=== PATIENT | female | born 1945 | race Caucasian/White ===

== ENCOUNTER → 2016-08-30 | Outpatient (CLI) | payer OTHER, MEDICAID ==
--- NOTE | 2016-08-30 18:21 | DX ---
Thoracolumbar Spine - Two Views Indication: Surgery three months ago. Technique: Upright AP and lateral views. Comparison: June 02, 2016. Findings: The posterior fusion construct extending from L4 to S1, consisting of dual posterior rods, bilateral transpedicular screws, interspinous fixator devices at L4-L5 and L5-S1, and allograft and radiopaque markers in the L4-L5 and L5-S1 interbody spaces are all unchanged. 12 mm of anterolisthes is of L4 on L5 is unchanged. No perihardware fracture or lucency. Bones are demineralized. No acut e compression fracture. The abdominal aorta has calcified plaque. A subacute posterior 11th rib fra cture has healing callus. IMPRESSION: Well-seated posterior fusion construct extending from L4 to S1. Progressive fusion of t he L4 through S1 vertebral bodies.
== END ==
LOC: FIMAGING 15:46
PROVIDERS: ATTEND Physician Assistant Surgical
DX: Z09 Encounter for follow-up examination after completed treatment for conditions other than malignant neoplasm (principal); Z98.1 Arthrodesis status

== ENCOUNTER 2016-10-03 13:07 | Observation (INO) | payer OTHER, MEDICAID ==
--- NOTE | 2016-10-03 13:58 | EDPHY ---
H & P Stated Complaint: cough/fever/hurts to breathe - Personal History Current Tetanus/Diphtheria Vaccine: Yes Tetanus Vaccine Date: 2012 - Medical/Surgical History Hx Asthma: Yes Hx Chronic Respiratory Disease: No Hx Diabetes: No Hx Cardiac Disease: No Hx Renal Disease: No Hx Cirrhosis: No Hx Alcoholism: No Hx HIV/AIDS: No Hx Splenectomy or Spleen Trauma: No Other PMH: HTN, chronic L arm and R ankle sx/pain, dermoid cyst, L oophrectomy, cholecystectomy,. pneumonia last 2004, - Social History Smoking Status: Never smoked Time Seen by Provider: 10/03/16 13:57 Constitutional: Initial Vital Signs Temperature (C) 36.7 C 10/03/16 13:13 Heart Rate 91 10/03/16 13:13 Respiratory Rate 26 H 10/03/16 13:13 Blood Pressure 101/77 10/03/16 13:13 O2 Sat (%) 92 10/03/16 13:13 O2 Delivery Mode Nasal Cannula O2 (L/minute) 3 Allergies/Adverse Reactions: No Known Allergies Allergy (Verified 10/03/16 13:11) Home Medications: Medication Instructions Recorded Gabapentin [Neurontin 300 MG (*)] 600 mg PO HS 05/16/16 Hydrochlorothiazide [HCTZ (*)] 25 mg PO DAILY 05/16/16 Temazepam [Restoril 15 MG (*)] 15 mg PO HSPRN PRN 05/16/16 Symbicort 160-4.5 Mcg Inh (*) 10/03/16 Medical Decision Making ED Course/Re-evaluation: CHIEF COMPLAINT: Cough, fever HISTORY OF PRESENT ILLNESS: The patient is a 71 y/o female complaining of a cough, shortness of breath, and fever for the last 6 days. She has a history of asthma and prior admission for pneumonia. She reports her symptoms feel exactly the same as a previous pneumonia episode. She notes she required home O2 for a while following a back surgery in May 2016, but is no longer on home O2. REVIEW OF SYSTEMS: A 10 point review of systems was performed and is negative with the exception of the elements mentioned in the history of present illness. PHYSICAL EXAM: HR, BP, O2 Sat, RR. Temp noted General Appearance: Alert, well hydrated, appropriate, and non-toxic appearing. Head: Atraumatic without scalp tenderness or obvious injury Eyes: Pupils equal, round, reactive to light and accommodation, EOMI, no trauma , no injection. Ears: Clear bilaterally, no perforation, normal landmarks Nose: Atraumatic, no rhinorrhea, clear. Throat: There is no erythema or exudates, no lesions, normal tonsils, mucus membranes moist. Neck: Supple, 2+ carotid upstroke, nontender, no lymphadenopathy. Respiratory: No retractions, no distress, no wheezes, and no accessory muscle use. Lungs have coarse rhonchi throughout all shaikh with decreases at the bases. Cardiovascular: Regular rate and rhythm, no murmurs, rubs, or gallops. Good capillary refill all extremities. Gastrointestinal: Abdomen is soft, nontender, non-distended, no masses, no rebound, no guarding, no peritoneal signs. Musculoskeletal: Normal active ROM of all extremities, atraumatic. Neurological: Alert, appropriate, and interactive. The patient has normal DTRs and non-focal cranial nerves, motor, sensory, and cerebellar exam. Skin: No rashes, good turgor, no nodules on palpation. Past medical history: Previous admission for pneumonia, asthma Past surgical history: Back surgery 05/31/16 Family history: Noncontributory Social history: Lives in [place] DIAGNOSTICS/PROCEDURES/CRITICAL CARE TIME: Study: Chest x-ray Indication: Cough Results: Chest x-ray was obtained. The results of the study are Mild diffuse interstitial thickening throughout both lungs, without focal pneumonia. Central bronchitis. The study was read by the radiologist, Dr. Solo. I viewed the images myself on the PACS system. DIFFERENTIAL DIAGNOSIS: The differential diagnosis for the patient's cough and fever included but was not limited to pneumonia, bronchitis, asthma exacerbation, urinary tract infection, viral syndrome, meningitis, and sepsis. MEDICAL DECISION MAKING: This is a 71 y/o female with a history of asthma presenting with a 6-day history of a cough and fever. She has not improved with OTC treatments. She has coarse rhonchi in all shaikh on exam with decreases at the bases and is actively cough. Exam is otherwise unremarkable. Her HR is 84 on exam and respiratory rate 18. Plan for sepsis screen, flu swab, chest x-ray, and only Atrovent nebulizer treatment administered as patient declines albuterol because it made her "hyper." Chest x-ray is consistent with bronchitis. Labs are pending. 1500: Patient signed out to Dr. Putnam at shift change pending lab results. If normal, patient will be discharged home with diagnosis of acute bronchitis, referral to PCP, and inhaler if she will take it, though it's likely she will refuse albuterol treatment again. (Stalin Stahl) 71-year-old female with a history of asthma who presents with influenza B and bronchospasm. Chest-few expiratory wheezes after an Atrovent nebulizer. I will give her Solu-Medrol 125 mg IV and a L of normal saline and will check her oxygen saturation on room air. Chest x-ray reviewed by Dr. Solo, radiology, reveals: Mild diffuse interstitial thickening throughout both lungs, without focal pneumonia. Central bronchitis. This is new from December 2014. Oxygen saturation 79% on room air. Oxygen 2 L by nasal cannula was placed and her oxygen level return to the mid 90s. I will admit her for influenza and bronchospasm. There is no evidence of pneumonia on x-ray. 1558: Consulted with Dr. Anderson, hospitalist. She accepts admission. . (Pau Putnam) - Data Points Laboratory Results: Laboratory Results 10/03/16 14:45 10/03/16 10/03/16 10/03/16 15:00 15:00 14:45 WBC RBC Hgb Hct MCV MCH MCHC RDW Plt Count MPV Neut % (Auto) Lymph % (Auto) [place] % (Auto) Eos % (Auto) Baso % (Auto) Nucleat RBC Rel Count Absolute Neuts (auto) Absolute Lymphs (auto) Absolute Monos (auto) Absolute Eos (auto) Absolute Basos (auto) Absolute Nucleated RBC Immature Gran % Immature Gran # PT INR APTT VBG Lactic Acid 1.2 mmol/L mmol/L (0.7-2.1) Sodium Pending Potassium Pending Chloride Pending Carbon Dioxide Pending Anion Gap Pending BUN Pending Creatinine Pending Estimated GFR Pending Glucose Pending Calcium Pending Total Bilirubin Pending Influenza Typ A,B (DFA) POSITIVE FOR FLU B H (NEGATIVE) 10/03/16 10/03/16 14:45 14:45 WBC 6.68 10^3/uL 10^3/uL (3.80-9.50) RBC 4.61 10^6/uL 10^6/uL (4.18-5.33) Hgb 14.3 g/dL g/dL (12.6-16.3) Hct 41.2 % % (38.0-47.0) MCV 89.4 fL fL (81.5-99.8) MCH 31.0 pg pg (27.9-34.1) MCHC 34.7 g/dL g/dL (32.4-36.7) RDW 15.9 % H % (11.5-15.2) Plt Count 95 10^3/uL L 10^3/uL (150-400) MPV 11.0 fL fL (8.7-11.7) Neut % (Auto) 64.1 % % (39.3-74.2) Lymph % (Auto) 22.3 % % (15.0-45.0) [place] % (Auto) 12.3 % % (4.5-13.0) Eos % (Auto) 0.6 % % (0.6-7.6) Baso % (Auto) 0.4 % % (0.3-1.7) Nucleat RBC Rel Count 0.0 % % (0.0-0.2) Absolute Neuts (auto) 4.28 10^3/uL 10^3/uL (1.70-6.50) Absolute Lymphs (auto) 1.49 10^3/uL 10^3/uL (1.00-3.00) Absolute Monos (auto) 0.82 10^3/uL H 10^3/uL (0.30-0.80) Absolute Eos (auto) 0.04 10^3/uL 10^3/uL (0.03-0.40) Absolute Basos (auto) 0.03 10^3/uL 10^3/uL (0.02-0.10) Absolute Nucleated RBC 0.00 10^3/uL 10^3/uL (0-0.01) Immature Gran % 0.3 % % (0.0-1.1) Immature Gran # 0.02 10^3/uL 10^3/uL (0.00-0.10) PT 13.3 SEC SEC (12.0-15.0) INR 1.02 (0.83-1.16) APTT 32.6 SEC SEC (23.0-38.0) VBG Lactic Acid Sodium Potassium Chloride Carbon Dioxide Anion Gap BUN Creatinine Estimated GFR Glucose Calcium Total Bilirubin Influenza Typ A,B (DFA) Medications Given: Discontinued Medications Sodium Chloride (Ns) 1,000 mls @ 0 mls/hr IV ONCE ONE PRN Reason: Wide Open Stop: 10/03/16 15:51 Last Admin: 10/03/16 15:57 Dose: 1,000 mls Ipratropium [place] (Atrovent Neb) 0.5 mg IH EDNOW ONE Stop: 10/03/16 14:09 Last Admin: 10/03/16 14:45 Dose: 0.5 mg Departure - Departure Disposition: Home, Routine, Self-Care Clinical Impression: Influenza Acute bronchitis Qualifiers: Bronchitis organism: other organism Qualified Code(s): J20.8 - Acute bronchitis due to other specified organisms Condition: Good Instructions: Influenza (ED), Acute Bronchitis (ED) Additional Instructions: You have influenza. You are contagious, so be careful around other people. Follow up with your primary care provider for symptoms not improved over the next week. Return for worsening symptoms, including with worsening cough, vomiting or fever. Referrals: Antonella Martins MD [Primary Care Provider] - As per Instructions Report Scribed for: Stalin Stahl Report Scribed by: Shelia Montes Date of Report: 10/03/16 Time of Report: 14:16
[2016-10-03] MEDS ORDERED: IPRATROPIUM BROMIDE 0.5 MG/2.5 ML DEYVIAL IH ONE (14:08)
--- NOTE | 2016-10-03 15:09 | CPEKG ---
Heart Rate: 78 RR Interval: 769 P-R Interval: 172 QRSD Interval: 100 QT Interval: 412 QTC Interval: 470 P [place]: 45 QRS [place]: -9 T Wave [place]: 26 EKG Severity - NORMAL ECG - EKG Impression: SINUS RHYTHM Electronically Signed By: Stalin Stahl 03-Oct-2016 15:18:59
[2016-10-03 15:19] LABS: % IMMATURE GRANULYOCYTES 0.3 % (0.0-1.1); ABSOLUTE IMMATURE GRANULOCYTES 0.02 10^3/uL (0.00-0.10); ADD DIFF? NO; ADD MORPH? NO; ADD SCAN? NO; ATYPICAL LYMPHOCYTE FLAG 0 (0-99); FRAGMENT RBC FLAG 0 (0-99); HEMATOCRIT 41.2 % (38.0-47.0); HEMOGLOBIN 14.3 g/dL (12.6-16.3); LEFT SHIFT FLG 0 (0-99); LIPEMIA HEMOLYSIS FLAG 90 (0-99); MEAN CELL HEMOGLOBIN CONCENTR. 34.7 g/dL (32.4-36.7); MEAN CELL VOLUME 89.4 fL (81.5-99.8); PLATELET CLUMPS FLAG 0 (0-99); PLATELET COUNT 95 10^3/uL (150-400); RED BLOOD CELL COUNT 4.61 10^6/uL (4.18-5.33); RED CELL DISTRIBUTION WIDTH 15.9 % (11.5-15.2)
[2016-10-03 15:28] LABS: INR 1.02 (0.83-1.16); PROTIME(PATIENT) 13.3 SEC (12.0-15.0)
[2016-10-03 15:29] LABS: APTT 32.6 SEC (23.0-38.0)
[2016-10-03] MEDS ORDERED: NS 1,000 ML IV ONE (15:50)
[2016-10-03 16:01] LABS: ANION GAP 10 mEq/L (8-16); BILIRUBIN,TOTAL 0.7 mg/dL (0.1-1.4); CALCIUM 8.8 mg/dL (8.5-10.4); CARBON DIOXIDE 23 mEq/l (22-31); CHLORIDE 100 mEq/L (97-110); CREATININE 0.7 mg/dL (0.6-1.0); GLOMERULAR FILTRATION RATE > 60; GLUCOSE 85 mg/dL (70-100); POTASSIUM 3.7 mEq/L (3.5-5.2); SODIUM 133 mEq/L (134-144)
[2016-10-03] MEDS ORDERED: methylPREDNISolone SOD SUCC 125 MG/2 ML VIAL IVP ONE (16:05)
[2016-10-03] MEDS ORDERED: OSELTAMIVIR PHOSPHATE 75 MG CAP PO ONE (16:06)
[2016-10-03] MEDS ORDERED: ONDANSETRON DISINTEGRATING 4 MG TAB PO PRN (16:29)
[2016-10-03] MEDS ORDERED: ONDANSETRON 4 MG/2 ML VIAL IVP PRN (16:29)
[2016-10-03] MEDS ORDERED: IPRATROPIUM/ALBUTEROL 3 ML DEYVIAL IH PRN (16:32)
[2016-10-03] MEDS ORDERED: BENZONATATE 100 MG CAP PO PRN (17:12)
[2016-10-03] MEDS ORDERED: NS 1,000 ML IV SCH (17:15)
--- NOTE | 2016-10-03 18:10 | GHP ---
DATE OF ADMISSION: 10/03/2016 CHIEF COMPLAINT: Acute hypoxia, influenza B. HISTORY OF PRESENT ILLNESS: a 71-year-old female with history of hypertension, asthma, thrombocytopenia, presenting with diffuse upper respiratory symptoms. Patient is complaining of a runny nose and dry cough 2-3 days ago with worsening of cough on Monday. She developed a fever at that time of 101. The cough is dry. No sputum production. Has been drinking fluids, but minimal p.o. intake, with decreased appetite. Reports headache, diarrhea 3 times yesterday, shortness of breath and myalgias. She did not get a flu shot this year because a couple years ago she got it and still got the flu. Denies ill contacts. In the emergency room, she was 95% on room air. Initially, she was wanting to go home. However, we walked her, and she dropped to 85% on room air, and she opted to stay overnight. REVIEW OF SYSTEMS: I completed a 10-point review of systems, negative, except as noted in HPI. PAST MEDICAL HISTORY: 1. Hypertension. 2. Pneumonia in the past x3. 3. Asthma. 4. Thrombocytopenia, unclear etiology per my review of past records. PAST SURGICAL HISTORY: Back surgery, May 2016. SOCIAL HISTORY: Lives in [place]. Remote history of tobacco for 8 years. No alcohol. No illicits. FAMILY HISTORY: Mother with OK and breast cancer, just this weekend of a stroke. Father with a heart attack. ALLERGIES: No known drug allergies. MEDICATIONS: Symbicort, Restoril, hydrochlorothiazide 25 mg daily, and gabapentin 600 q.h.s. PHYSICAL EXAM: VITAL SIGNS: Temperature 36.7, blood pressure 134/86, heart rate 70s to 90s, respiration rate 20s, 79% on room air, 96% on 2 L. GENERAL: Ill appearing, uncomfortable. HEENT: PERRLA. Dry mucous membranes. CV: Regular rate and rhythm. No murmurs, gallops, or rubs. LUNGS: Crackles, bilateral bases. ABDOMEN: Soft, nontender, nondistended. Positive bowel sounds. : No Nicole. No suprapubic tenderness. MUSCULOSKELETAL: 5/5 upper and lower extremity strength. NEURO: 2 through 12 intact. PSYCH: Alert and oriented x3. LABS: WBC 6.8, hemoglobin 14, hematocrit 41, platelets 95 (baseline is in the 90s). Sodium 133, potassium 3.7, chloride 100, carbon dioxide 23, BUN 9. Creatinine is 0.7. Glucose 85, total bilirubin 0.7. INR is 1.02. PT is 13.3. Positive for influenza B. EKG personally reviewed by me, normal sinus rhythm. Chest x-ray personally reviewed by me: Bilateral bronchial thickening. No opacity or effusion. ASSESSMENT AND PLAN: 1. Acute hypoxic respiratory failure: due influenza B, asthma exacerbation. No evidence of pneumonia or fluid overload. Treat with Tamiflu given recent fevers and underlying asthma. Continue DuoNebs. 2. Influenza B: Tamiflu for 5 days, DuoNeb, and antitussives. 3. Asthma exacerbation: triggered by flu. Dosed Solu-Medrol in ER, cont prednisone in the morning and DuoNebs. 4. Benign hypertension: Will hold antihypertensive given decreased p.o. intake. 5. Thrombocytopenia: Platelets today are 95, which is her baseline. Unclear etiology per my review of records. 6. Chronic back pain: Underwent surgery, May 2016, without issue. Will continue gabapentin, Tylenol, and heating pad as needed. 7. Diet: Regular. 8. Deep vein thrombosis prophylaxis: SCDs. 9. Disposition: The patient warrants observation admission given acute hypoxia , warranting oxygen, Tamiflu. Suspect the patient will want to discharge home tomorrow. /[id number]/MODL MTDD
[2016-10-03] MEDS: OSELTAMIVIR PHOSPHATE 75 MG CAP PO SCH (18:17)
[2016-10-03] MEDS: guaiFENesin/CODEINE PHOS 10 ML UDCUP PO PRN (18:21)
[2016-10-03] MEDS: ACETAMINOPHEN 325 MG TAB PO PRN (18:21)
[2016-10-03] MEDS ORDERED: traMADol 50 MG TAB PO PRN (20:39)
[2016-10-03] MEDS ORDERED: GABAPENTIN 300 MG CAP PO PRN (20:39)
[2016-10-03] MEDS ORDERED: TEMAZEPAM 15 MG CAP PO PRN (20:39)
[2016-10-03] MEDS ORDERED: GABAPENTIN 300 MG CAP PO SCH (21:00)
[2016-10-03] MEDS: BUDESONIDE/FORMOTEROL 160/4.5 60 PUFFS/MDI IH SCH (21:09)
[2016-10-03] MEDS ORDERED: TEMAZEPAM 15 MG CAP PO ONE (23:07)
[2016-10-04] MEDS: guaiFENesin/CODEINE PHOS 10 ML UDCUP PO PRN ×2 (01:52→09:14)
[2016-10-04] MEDS: ACETAMINOPHEN 325 MG TAB PO PRN ×2 (03:12→12:25)
[2016-10-04 06:16] LABS: HEMATOCRIT 42.4 % (38.0-47.0); HEMOGLOBIN 13.9 g/dL (12.6-16.3); MEAN CELL HEMOGLOBIN CONCENTR. 32.8 g/dL (32.4-36.7); MEAN CELL VOLUME 88.5 fL (81.5-99.8); RED BLOOD CELL COUNT 4.79 10^6/uL (4.18-5.33); RED CELL DISTRIBUTION WIDTH 15.6 % (11.5-15.2)
[2016-10-04 06:42] LABS: ANION GAP 10 mEq/L (8-16); CALCIUM 8.9 mg/dL (8.5-10.4); CARBON DIOXIDE 25 mEq/l (22-31); CHLORIDE 106 mEq/L (97-110); CREATININE 0.7 mg/dL (0.6-1.0); GLOMERULAR FILTRATION RATE > 60; GLUCOSE 151 mg/dL (70-100); POTASSIUM 3.8 mEq/L (3.5-5.2); SODIUM 141 mEq/L (134-144)
[2016-10-04 08:28] VITALS: RESP 20
[2016-10-04] MEDS: OSELTAMIVIR PHOSPHATE 75 MG CAP PO SCH (08:42)
[2016-10-04] MEDS ORDERED: PRENATAL VIT 1 EACH TAB PO SCH (09:00)
[2016-10-04] MEDS ORDERED: predniSONE 20 MG TAB PO SCH (09:00)
[2016-10-04] MEDS ORDERED: CHOLECALCIFEROL VIT D3 1,000 UNITS TAB PO SCH (09:00)
[2016-10-04] MEDS ORDERED: Herbals/Supplements -Info Only PO SCH (09:00)
[2016-10-04] MEDS ORDERED: PARoxetine HCL 10 MG TAB PO SCH (09:00)
[2016-10-04] MEDS ORDERED: CALCIUM CARB W/VIT D 500 MG TAB PO SCH ×2 (09:00→11:00)
[2016-10-04] MEDS ORDERED: HYDROCHLOROTHIAZIDE 25 MG TAB PO SCH (09:00)
[2016-10-04] MEDS ORDERED: ENOXAPARIN 40 MG/0.4 ML SYR SC SCH (09:00)
[2016-10-04] MEDS: BUDESONIDE/FORMOTEROL 160/4.5 60 PUFFS/MDI IH SCH (10:04)
[2016-10-04] MEDS ORDERED: LOPERAMIDE HCL 1 MG/5 ML UDCUP PO PRN (11:17)
--- NOTE | 2016-10-04 11:19 | PDDCSUM ---
Discharge Summary Discharge Summary: DISCHARGE DIAGNOSES: ACUTE INFLUENZA ACUTE HYPOXEMIC RESPIRATORY FAILURE COPD EXACERBATION HOSPITAL COURSE: This patient presented with myalgia, nausea/vomiting, cough, dyspnea and fever, and was found to have acute inflluenza B with hypoxemia but no evidence of a bacterial pneumonia. She was treated in the hospital with tamiflu, bronchodilators and prednisone. She improved rapidly with resolution of fever , myalgia, anorexia, nausea and much improved respiratory symptoms. By today she is ambulating well in [facility] on room air. She is stable for DC to home She is to follow up iwth her display card writer in 1 week. She is aware that her condition is contagious. MEDICATION CHANGES: -5 days of tamiflu bid -atrovent inhaler -prednisone 20 mg / day for 5 more days
[2016-10-04 11:35] VITALS: TEMP 97.8
[2016-10-04] MEDS: GABAPENTIN 250 MG/5 ML 30 ML BOTTLE PO PRN ×2 (12:26→12:27)
[2016-10-04 16:04] VITALS: BP 133/88; PULSE 99; O2SAT 91
== END 2016-10-04 16:37 | disposition home or self-care (01) ==
LOC: INTOOBSV 16:05 → F3E 17:05
PROVIDERS: ADMIT Internal Medicine; ATTEND Internal Medicine
DX: J10.1 Influenza due to other identified influenza virus with other respiratory manifestations (principal); J96.01 Acute respiratory failure with hypoxia; J45.901 Unspecified asthma with (acute) exacerbation; I10 Essential (primary) hypertension; D69.6 Thrombocytopenia, unspecified; Z87.891 Personal history of nicotine dependence
CPT/HCPCS: 71020; 93005; G0378; J1650; 96374

== ENCOUNTER → 2016-11-23 | Outpatient (CLI) | payer OTHER, MEDICAID | LOC: FIMAGING 11:08 | PROVIDERS: ATTEND Physician Assistant Surgical | DX: Z09 Encounter for follow-up examination after completed treatment for conditions other than malignant neoplasm (principal); Z98.1 Arthrodesis status ==

== ENCOUNTER 2016-12-15 14:01 | Emergency (ER) | payer OTHER, MEDICAID ==
[2016-12-15 14:07] VITALS: O2SAT 94
--- NOTE | 2016-12-15 14:28 | EDPHY ---
H & P Time Seen by Provider: 12/15/16 14:22 HPI/ROS: CHIEF COMPLAINT: Fever, body aches HISTORY OF PRESENT ILLNESS: This patient is a 71 year old female who presents to the Emergency Department complaining of lower extremity myalgias and generalized weakness first presenting in mid-November and increasing in severity over time. Approximately one month prior to arrival, she began to experience waxing and waning generalized weakness with associated body aches to both lower extremities. Ten days prior to arrival, she experienced an intermittent fever with chills effectively alleviated with use of Tylenol. Her fever returned when she stopped using Tylenol yesterday. She presents to the ED today because her complaints of fatigue and weakness have not improved and her PCP is unable to see her in the office. She describes mild exertional dyspnea but attributes this to her asthma. She denies cough, diarrhea, constipation, nausea, or vomiting. Denies hematuria or dysuria. She had the flu earlier this year. No additional pertinent medical history. REVIEW OF SYSTEMS: Constitutional: +fever, +chills, +generalized weakness Eyes: No visual changes ENT: No sore throat Respiratory: No cough, +shortness of breath Cardiac: No chest pain Gastrointestinal: No nausea, no vomiting, no abdominal pain Genitourinary: No hematuria, no dysuria Musculoskeletal: +left-sided low back pain, +bilateral lower extremity myalgia, no leg swelling Skin: No rash Neurological: +mild headache, no numbness, no weakness Psychiatric: No depression Past Medical/Surgical History: Asthma, shoulder surgery unspecified, hernia, left-sided oophorectomy, appendectomy Social History: , lives in [place], never smoked Smoking Status: Never smoked Physical Exam: General Appearance: Alert, no distress Eyes: Pupils equal and round, no conjunctival pallor or injection ENT, Mouth: Mucous membranes moist Neck: Normal inspection Respiratory: Lungs are clear to auscultation Cardiovascular: Regular rate and rhythm Gastrointestinal: Abdomen is soft with mild RLQ and LLQ tenderness to palpation Neurological: A&O, nonfocal, normal gait Skin: Warm and dry, erythematous rash on right lower extremity with irregular borders with central clearing and scalings, largest area is 5x7cm in diameter Extremities: Nontender, no pedal edema Psychiatric: Mood and affect normal Constitutional: Initial Vital Signs Temperature (C) 37.1 C 12/15/16 14:03 Heart Rate 106 H 05/11/17 14:03 Respiratory Rate 18 12/15/16 14:03 Blood Pressure 136/87 H 12/15/16 14:03 O2 Sat (%) 94 12/15/16 14:03 O2 Delivery Mode Room Air Allergies/Adverse Reactions: No Known Allergies Allergy (Verified 10/03/16 13:11) Home Medications: Medication Instructions Recorded Calcium Carbonate/Vitamin D3 2 each PO DAILY 10/03/16 [Calcium 500-Vit D3 200 Tablet] Cholecalciferol Vit D3 [Vitamin D3 2,000 units PO DAILY 10/03/16 (*)] Gabapentin 150 mg PO Q6 PRN 10/03/16 Gabapentin [Neurontin 300 MG (*)] 300 mg PO HS PRN 10/03/16 Herbals/Supplements -Info Only 1 ea PO DAILY 10/03/16 Hydrochlorothiazide [HCTZ (*)] 25 mg PO DAILY 10/03/16 PARoxetine HCL [Paxil 10mg (*)] 10 mg PO DAILY 10/03/16 Vit27&Calcium/Iron/FA 1 each PO DAILY 10/03/16 [] Temazepam 15 - 30 mg PO HS PRN 10/03/16 Acetaminophen [Tylenol 325mg (*)] 650 mg PO Q4HRS PRN #0 tab 10/04/16 Benzonatate [Tessalon Pearles] 200 mg PO TID PRN #30 cap 10/04/16 Medical Decision Making - Diagnostics Imaging Results: Imaging Impressions Abdomen CT 12/15/16 14:35 Impression: 1. No localized acute intra-abdominal process. 2. Constipation and minimal sigmoid diverticulosis are unchanged. 3. Normal appendix. 4. Anterior abdominal wall hernias containing only fat are unchanged. 5. Minimally worse bibasilar bronchiolitis. Findings discussed with Emergency Department physician, Pau Putnam on 2016 at 1603 hours. Chest X-Ray 12/15/16 14:35 Impression: Stable chest. Diffuse bilateral pulmonary interstitial thickening, unchanged.. ED Course/Re-evaluation: This 71-year-old female presents complaining of persistent generalized weakness , fatigue, and lower extremity myalgias beginning one month prior to arrival with an intermittent fever beginning 1.5 weeks prior to arrival. She describes a variety of nonspecific complaints as summarized in ROS. She is alert and well- appearing on presentation. She has RLQ and LLQ abdominal tenderness to palpation and a rash to her right lower extremity. Will proceed with CT of the abdomen and labs. Chest x-ray reviewed by me shows bilateral pulmonary thickening unchanged from previous. Labs reviewed and are unremarkable. UA is negative for UTI. Awaiting CT results at this time. 1600: CT of the abdomen is non-acute per Dr. Torres, radiology. I discussed imaging and lab results with the patient. Unclear etiology of fever and fatigue. No fever in ED and she is well-appearing. I recommended to her that she follow-up with a PCP for further evaluation. She expresses agreement to this and will be discharged home in good condition. Differential Diagnosis: Differential diagnosis includes diverticulitis, appendicitis, pyelonephritis, cholecystitis, influenza, cellulitis, pneumonia, abscess, meningitis, anemia. - Data Points Laboratory Results: Laboratory Results 12/15/16 14:45 12/15/16 14:45 12/15/16 12/15/16 12/15/16 14:45 14:45 14:30 WBC 9.75 10^3/uL H 10^3/uL (3.80-9.50) RBC 4.50 10^6/uL 10^6/uL (4.18-5.33) Hgb 14.2 g/dL g/dL (12.6-16.3) Hct 41.9 % % (38.0-47.0) MCV 93.1 fL fL (81.5-99.8) MCH 31.6 pg pg (27.9-34.1) MCHC 33.9 g/dL g/dL (32.4-36.7) RDW 13.0 % % (11.5-15.2) Plt Count 152 10^3/uL 10^3/uL (150-400) MPV 10.2 fL fL (8.7-11.7) Neut % (Auto) 58.4 % % (39.3-74.2) Lymph % (Auto) 24.0 % % (15.0-45.0) [place] % (Auto) 11.3 % % (4.5-13.0) Eos % (Auto) 5.2 % % (0.6-7.6) Baso % (Auto) 0.7 % % (0.3-1.7) Nucleat RBC Rel Count 0.0 % % (0.0-0.2) Absolute Neuts (auto) 5.69 10^3/uL 10^3/uL (1.70-6.50) Absolute Lymphs (auto) 2.34 10^3/uL 10^3/uL (1.00-3.00) Absolute Monos (auto) 1.10 10^3/uL H 10^3/uL (0.30-0.80) Absolute Eos (auto) 0.51 10^3/uL H 10^3/uL (0.03-0.40) Absolute Basos (auto) 0.07 10^3/uL 10^3/uL (0.02-0.10) Absolute Nucleated RBC 0.00 10^3/uL 10^3/uL (0-0.01) Immature Gran % 0.4 % % (0.0-1.1) Immature Gran # 0.04 10^3/uL 10^3/uL (0.00-0.10) Sodium 140 mEq/L mEq/L (134-144) Potassium 3.6 mEq/L mEq/L (3.5-5.2) Chloride 103 mEq/L mEq/L (97-110) Carbon Dioxide 26 mEq/l mEq/l (22-31) Anion Gap 11 mEq/L mEq/L (8-16) BUN 13 mg/dL mg/dL (7-23) Creatinine 0.6 mg/dL mg/dL (0.6-1.0) Estimated GFR > 60 Glucose 91 mg/dL mg/dL (70-100) Calcium 9.1 mg/dL mg/dL (8.5-10.4) Total Bilirubin 0.7 mg/dL mg/dL (0.1-1.4) Conjugated Bilirubin 0.5 mg/dL mg/dL (0.0-0.5) Unconjugated Bilirubin 0.2 mg/dL mg/dL (0.0-1.1) AST 29 IU/L IU/L (14-46) ALT 28 IU/L IU/L (9-52) Alkaline Phosphatase 116 IU/L IU/L (38-126) Total Protein 6.8 g/dL g/dL (6.3-8.2) Albumin 3.9 g/dL g/dL (3.5-5.0) Lipase 81.0 IU/L IU/L (23-300) Urine Color YELLOW Urine Appearance CLEAR Urine pH 7.0 (5.0-7.5) Ur Specific [place] 1.009 (1.002-1.030) Urine Protein NEGATIVE (NEGATIVE) Urine Ketones NEGATIVE (NEGATIVE) Urine Blood NEGATIVE (NEGATIVE) Urine Nitrate NEGATIVE (NEGATIVE) Urine Bilirubin NEGATIVE (NEGATIVE) Urine Urobilinogen NEGATIVE EU EU (0.2-1.0) Ur Leukocyte Esterase NEGATIVE (NEGATIVE) Urine Glucose NEGATIVE (NEGATIVE) Medications Given: Discontinued Medications Acetaminophen (Tylenol) 1,000 mg PO EDNOW ONE Stop: 12/15/16 15:36 Last Admin: 12/15/16 15:37 Dose: 1,000 mg Sodium Chloride (Ns) 1,000 mls @ 0 mls/hr IV ONCE ONE PRN Reason: Wide Open Stop: 12/15/16 14:35 Last Admin: 12/15/16 15:02 Dose: Not Given Departure - Departure Disposition: Home, Routine, Self-Care Clinical Impression: Fever Qualifiers: Fever type: unspecified Qualified Code(s): R50.9 - Fever, unspecified Fatigue Qualifiers: Fatigue type: other Qualified Code(s): R53.83 - Other fatigue Condition: Good Instructions: Fever in Adults (ED) Additional Instructions: 1. Continue to take up 650mg Tylenol every 4-6 hours as needed for fever. 2. I recommend that you follow-up with your primary care provider on Monday for further evaluation of your weakness and fever 3. Return to the Emergency Department if you experience uncontrollable high fever, chest pain, shortness of breath, or other serious concerns. Referrals: Antonella Martins MD [Primary Care Provider] - As per Instructions Report Scribed for: Pau Putnam Report Scribed by: Tammi Love Date of Report: 12/15/16 Time of Report: 14:24 Physician Review and Approval Statement: 12/15/16 14:24 Portions of this note were transcribed by a medical biller/coder. I personally performed a history, physical exam, medical decision making, and confirmed accuracy of information the transcribed note.
[2016-12-15] MEDS ORDERED: NS 1,000 ML IV ONE (14:34)
[2016-12-15 15:02] LABS: % IMMATURE GRANULYOCYTES 0.4 % (0.0-1.1); ABSOLUTE IMMATURE GRANULOCYTES 0.04 10^3/uL (0.00-0.10); ADD DIFF? NO; ADD MORPH? NO; ADD SCAN? NO; ATYPICAL LYMPHOCYTE FLAG 0 (0-99); FRAGMENT RBC FLAG 0 (0-99); HEMATOCRIT 41.9 % (38.0-47.0); HEMOGLOBIN 14.2 g/dL (12.6-16.3); LEFT SHIFT FLG 0 (0-99); LIPEMIA HEMOLYSIS FLAG 90 (0-99); MEAN CELL HEMOGLOBIN 31.6 pg (27.9-34.1); MEAN CELL HEMOGLOBIN CONCENTR. 33.9 g/dL (32.4-36.7); MEAN CELL VOLUME 93.1 fL (81.5-99.8); MEAN PLATELET VOLUME 10.2 fL (8.7-11.7); PLATELET CLUMPS FLAG 0 (0-99); PLATELET COUNT 152 10^3/uL (150-400)
[2016-12-15 15:15] LABS: ALANINE AMINOTRANSFERASE 28 IU/L (9-52); ALBUMIN 3.9 g/dL (3.5-5.0); ALKALINE PHOSPHATASE 116 IU/L (38-126); ANION GAP 11 mEq/L (8-16); ASPARTATE AMINOTRANSFERASE 29 IU/L (14-46); BILIRUBIN,TOTAL 0.7 mg/dL (0.1-1.4); BILIRUBIN-CONJUGATED 0.5 mg/dL (0.0-0.5); BILIRUBIN-UNCONJUGATED 0.2 mg/dL (0.0-1.1); CALCIUM 9.1 mg/dL (8.5-10.4); CARBON DIOXIDE 26 mEq/l (22-31); CHLORIDE 103 mEq/L (97-110); CREATININE 0.6 mg/dL (0.6-1.0); GLOMERULAR FILTRATION RATE > 60; GLUCOSE 91 mg/dL (70-100); POTASSIUM 3.6 mEq/L (3.5-5.2); SODIUM 140 mEq/L (134-144); TOTAL PROTEIN 6.8 g/dL (6.3-8.2)
[2016-12-15] MEDS ORDERED: IOPAMIDOL (ISOVUE-300) 100 ML BTL ONE (15:19)
[2016-12-15] MEDS ORDERED: ACETAMINOPHEN 500 MG TAB ONE (15:28)
[2016-12-15] MEDS ORDERED: ACETAMINOPHEN 500 MG TAB PO ONE (15:35)
[2016-12-15 15:39] LABS: COLOR YELLOW; LEUKOCYTE ESTERASE,URINE NEGATIVE (NEGATIVE); NITRITE,URINE NEGATIVE (NEGATIVE)
[2016-12-15 16:27] VITALS: BP 134/80; PULSE 98; TEMP 98.6
[2016-12-15 16:28] VITALS: RESP 18
== END 2016-12-15 16:28 | disposition home or self-care (01) ==
DX: R50.9 Fever, unspecified (principal); R53.83 Other fatigue; J45.909 Unspecified asthma, uncomplicated
CPT/HCPCS: 71020; 74177; 99285; Q9967

== ENCOUNTER → 2017-08-14 | Outpatient (CLI) | payer OTHER, MEDICAID | LOC: FIMAGING 12:24 | PROVIDERS: ATTEND Neurological Surgery | DX: Z98.1 Arthrodesis status (principal); M51.36 Other intervertebral disc degeneration, lumbar region ==

== ENCOUNTER → 2018-05-28 | Outpatient (CLI) | payer OTHER, MEDICAID | LOC: BHFA 15:30 | PROVIDERS: ATTEND Internal Medicine Cardiovascular Disease | DX: R06.02 Shortness of breath (principal) ==

== ENCOUNTER 2018-11-06 16:37 | Emergency (ER) | payer OTHER, MEDICAID ==
--- NOTE | 2018-11-06 16:54 | EDPHY ---
H & P Time Seen by Provider: 11/06/18 16:52 HPI/ROS: Chief complaint. Weakness, shortness of breath, fever HPI. Patient is a 73-year-old female who complains of fever, increased heart rate with walking, shortness of breath with exertion for 3 weeks. She had dental surgery 4 weeks ago. The dental surgery got infected and she was treated with penicillin. Toward the end of her course of penicillin she noticed the increased heart rate with exertion and non, nonproductive cough, and shortness of breath with exertion. She has a pulse oximeter at home and says that her oxygen level has been in the 70s and 80s. Normally it is in the 90s. She has had fevers to 101 degrees. No unusual leg pain or swelling. She feels tired and weak. Also decreased appetite. No recent travel or known exposures ROS 10 systems were reviewed and negative with the exception of the elements mentioned in the history of present illness Past Medical/Surgical History: Past medical history is significant for hypertension, chronic pain, oophorectomy , cholecystectomy, previous pneumonia Social History: , nonsmoker, no alcohol Smoking Status: Never smoked Physical Exam: General Appearance: Alert well-developed female moderate distress vital signs show temp 37.6 degrees, heart rate 89, blood pressure 207/122, O2 saturation on room air 87% Eyes: Pupils equal and round no pallor or injection. ENT, no pharyngeal injection. Mild erythema to the left upper posterior dental area. No abscess Respiratory: There are no retractions, lungs are clear to auscultation. Cardiovascular: Regular rate and rhythm. Gastrointestinal: Abdomen is soft and nontender, no masses, bowel sounds normal. Neurological: Awake and alert, sensory and motor exams grossly normal. Skin: Warm and dry, no rashes. Musculoskeletal: Neck is supple nontender. Extremities symmetrical, full range of motion. Psychiatric: Patient is oriented X 3, there is no agitation. Constitutional: Initial Vital Signs Temperature (C) 37.6 C 11/06/18 16:41 Heart Rate 89 11/06/18 16:41 Respiratory Rate 22 H 11/06/18 16:41 Blood Pressure 207/122 H 11/06/18 16:41 O2 Sat (%) 87 L 11/06/18 16:41 O2 Delivery Mode Nasal Cannula O2 (L/minute) 1 Allergies/Adverse Reactions: No Known Allergies Allergy (Verified 11/06/18 16:44) Home Medications: Medication Instructions Recorded Calcium Carbonate/Vitamin D3 2 each PO DAILY 10/03/16 [Calcium 500-Vit D3 200 Tablet] Cholecalciferol Vit D3 [Vitamin D3 2,000 units PO DAILY 10/03/16 (*)] Gabapentin 150 mg PO Q6 PRN 10/03/16 Gabapentin [Neurontin 300 MG (*)] 300 mg PO HS PRN 10/03/16 Herbals/Supplements -Info Only 1 ea PO DAILY 10/03/16 Hydrochlorothiazide [HCTZ (*)] 25 mg PO DAILY 10/03/16 PARoxetine HCL [Paxil 10mg (*)] 10 mg PO DAILY 10/03/16 Vit27&Calcium/Iron/FA 1 each PO DAILY 10/03/16 [] Temazepam 15 - 30 mg PO HS PRN 10/03/16 Acetaminophen [Tylenol 325mg (*)] 650 mg PO Q4HRS PRN #0 tab 10/04/16 Benzonatate [Tessalon Pearles] 200 mg PO TID PRN #30 cap 10/04/16 Medical Decision Making - Diagnostics EKG Interpretation: EKG interpreted by me shows normal sinus rhythm normal interval and axis. QRS is normal there is no significant ST elevation or depression. No arrhythmia. Rate 88 Imaging Results: Imaging Impressions Chest X-Ray 11/06/18 17:04 Impression: Diffuse peribronchial thickening, likely reflecting an acute superimposed bronchitis/bronchiolitis, however pulmonary vascular congestion associated with some cardiac decompensation cannot be excluded. Chest/Thorax CTA 11/06/18 18:09 Impression: 1. There is no CT evidence of pulmonary artery thromboemboli. 2. Marginal interval increase in the size of a mild ascending thoracic aortic aneurysm, currently measuring 4.4 cm in diameter and previously measuring 4.1 cm in 2016. There is no evidence of dissection. 3. Extensive coronary artery atherosclerotic calcific plaque. 4. Cardiomegaly with mitral annular calcification. 5. Diffuse bronchitis/bronchiolitis and interstitial features with subtle areas of bilateral developing groundglass attenuation which are nonspecific, and could indicate some early fluid overload, or infectious or inflammatory processes of other etiology. Findings were discussed with ISIDRO WETZEL MD at 19:06, on 11/06/2018. One-view chest x-ray is consistent with bronchitis and probable CHF CT angiogram chest shows no evidence of pulmonary embolus. Reviewed by me and discussed with Dr. Alatorre. Other findings are noted above. Procedures: IV normal saline. Kofi miller ED Course/Re-evaluation: Re-evaluation 7:30 p.m.. Patient is stable. She tells me that when she got up to go to the bathroom and was off oxygen her oxygen level dropped and her heart rate went up. Patient and I discussed imaging and lab results. We discussed treatment plan including recommendation for admission. She tells me that she is caring for neighbor's dogs and has no a to communicate with them and she cannot stay. She and I discussed risks and benefits of this plan. I have recommended repeatedly that she stay in the hospital. She tells me that she will not stay. She will leave against medical advice. Differential Diagnosis: Patient has no evidence for pulmonary embolus. She has bronchitis. She has congestive heart failure. She developing ground-glass appearance is in her lower lungs I am concerned about infection. She has a ascending thoracic aneurysm that has increased in size since 2016. No evidence for dissection. Extensive atherosclerotic heart disease. - Data Points Laboratory Results: Laboratory Results 11/06/18 17:10 11/06/18 17:10 11/06/18 11/06/18 11/06/18 17:16 17:10 17:10 WBC RBC Hgb Hct MCV MCH MCHC RDW Plt Count MPV Neut % (Auto) Lymph % (Auto) [place] % (Auto) Eos % (Auto) Baso % (Auto) Nucleat RBC Rel Count Absolute Neuts (auto) Absolute Lymphs (auto) Absolute Monos (auto) Absolute Eos (auto) Absolute Basos (auto) Absolute Nucleated RBC Immature Gran % Immature Gran # D-Dimer 1.59 ug/mLFEU H ug/mLFEU (0.00-0.50) Sodium 135 mEq/L mEq/L (135-145) Potassium 4.3 mEq/L mEq/L (3.5-5.2) Chloride 102 mEq/L mEq/L (97-110) Carbon Dioxide 25 mEq/l mEq/l (22-31) Anion Gap 8 mEq/L mEq/L (6-14) BUN 15 mg/dL mg/dL (7-23) Creatinine 0.9 mg/dL mg/dL (0.6-1.0) Estimated GFR > 60 Glucose 95 mg/dL mg/dL (70-100) Calcium 8.8 mg/dL mg/dL (8.5-10.4) POC Troponin I 0.00 ng/mL ng/mL (0.00-0.08) NT-Pro-B Natriuret Pep 1500 pg/mL H pg/mL (0-125) 11/06/18 17:10 WBC 10.60 10^3/uL H 10^3/uL (3.80-9.50) RBC 4.51 10^6/uL 10^6/uL (4.18-5.33) Hgb 13.7 g/dL g/dL (12.6-16.3) Hct 42.3 % % (38.0-47.0) MCV 93.8 fL fL (81.5-99.8) MCH 30.4 pg pg (27.9-34.1) MCHC 32.4 g/dL g/dL (32.4-36.7) RDW 13.4 % % (11.5-15.2) Plt Count 167 10^3/uL 10^3/uL (150-400) MPV 10.0 fL fL (8.7-11.7) Neut % (Auto) 57.9 % % (39.3-74.2) Lymph % (Auto) 26.3 % % (15.0-45.0) [place] % (Auto) 9.4 % % (4.5-13.0) Eos % (Auto) 5.2 % % (0.6-7.6) Baso % (Auto) 0.7 % % (0.3-1.7) Nucleat RBC Rel Count 0.0 % % (0.0-0.2) Absolute Neuts (auto) 6.14 10^3/uL 10^3/uL (1.70-6.50) Absolute Lymphs (auto) 2.79 10^3/uL 10^3/uL (1.00-3.00) Absolute Monos (auto) 1.00 10^3/uL H 10^3/uL (0.30-0.80) Absolute Eos (auto) 0.55 10^3/uL H 10^3/uL (0.03-0.40) Absolute Basos (auto) 0.07 10^3/uL 10^3/uL (0.02-0.10) Absolute Nucleated RBC 0.00 10^3/uL 10^3/uL (0-0.01) Immature Gran % 0.5 % % (0.0-1.1) Immature Gran # 0.05 10^3/uL 10^3/uL (0.00-0.10) D-Dimer Sodium Potassium Chloride Carbon Dioxide Anion Gap BUN Creatinine Estimated GFR Glucose Calcium POC Troponin I NT-Pro-B Natriuret Pep Medications Given: Discontinued Medications Acetaminophen (Tylenol) 1,000 mg PO EDNOW ONE Stop: 11/06/18 17:31 Last Admin: 11/06/18 17:33 Dose: 1,000 mg Albuterol/Ipratropium (Duoneb) 3 ml IH EDNOW ONE Stop: 11/06/18 17:05 Last Admin: 11/06/18 17:33 Dose: 3 ml Sodium Chloride (Ns) 1,000 mls @ 0 mls/hr IV ONCE ONE; Wide Open PRN Reason: Protocol Stop: 11/06/18 18:10 Last Admin: 11/06/18 18:25 Dose: 1,000 mls Point of Care Test Results: Chemistry 11/06/18 17:16 POC Troponin I 0.00 ng/mL ng/mL (0.00-0.08) Departure - Departure Disposition: Against Medical Advice Clinical Impression: Acute bronchitis Qualifiers: Bronchitis organism: unspecified organism Qualified Code(s): J20.9 - Acute bronchitis, unspecified Congestive heart failure Qualifiers: Heart failure type: unspecified Heart failure chronicity: acute on chronic Qualified Code(s): I50.9 - Heart failure, unspecified Condition: Fair Instructions: Heart Failure (ED) Additional Instructions: Please return to night for admission as we are recommending admission tonight Follow-up with your PCP or Dr. Mukherjee tomorrow without failure Return at any point for worsening symptoms or continuing symptoms Referrals: Jonah Mukherjee MD [Medical Doctor] - 1 day without fail Mia Frias MD [Primary Care Provider] - 1 day without fail
[2018-11-06] MEDS ORDERED: IPRATROPIUM/ALBUTEROL 3 ML DEYVIAL IH ONE (17:04)
[2018-11-06 17:23] LABS: PLATELET COUNT 167 10^3/uL (150-400)
[2018-11-06] MEDS ORDERED: ACETAMINOPHEN 500 MG TAB ONE (17:28)
[2018-11-06] MEDS ORDERED: ACETAMINOPHEN 500 MG TAB PO ONE (17:30)
[2018-11-06] MEDS ORDERED: NS 1,000 ML IV ONE (18:09)
[2018-11-06] MEDS ORDERED: IOPAMIDOL (ISOVUE 370) 100 ML BTL IV ONE (18:20)
[2018-11-06 20:04] VITALS: BP 157/99
--- NOTE | 2018-11-07 15:17 | CPEKG ---
Test Reason : OPEN Blood Pressure : / mmHG Vent. Rate : 088 BPM Atrial Rate : 088 BPM P-R Int : 168 ms QRS Dur : 099 ms QT Int : 373 ms P-R-T Axes : -05 -12 064 degrees QTc Int : 452 ms Sinus rhythm Probable left atrial enlargement Minimal ST elevation, anterior leads Confirmed by Eyal Martínez ([id number]) on 11/07/2018 3:17:18 PM Referred By: Eyal Martínez Confirmed By:Eyal Martínez
== END 2018-11-06 20:05 | disposition left against medical advice (07) ==
DX: J20.9 Acute bronchitis, unspecified (principal); I50.9 Heart failure, unspecified; I25.10 Atherosclerotic heart disease of native coronary artery without angina pectoris; E86.9 Volume depletion, unspecified
CPT/HCPCS: 71045; 71275; 93005; 96360; 99285; Q9967; 84484-ER